=== PATIENT | female | born 1985 | race Caucasian/White ===

== ENCOUNTER 2023-12-20 17:04 | Emergency (ER) | payer OTHER, SELFPAY ==
[2023-12-20 17:06] VITALS: BP 159/103
--- NOTE | 2023-12-20 18:39 | ED.GENMED ---
History of Present Illness
General
Chief Complaint: Skin Problem
Source: patient
Exam Limitations: none
Time Seen by Provider: 12/20/23 18:08
Nursing documentation reviewed up to this point in time: agreed with
Travel History
Have you had any contact with someone who has COVID-19?: No
Do you have any symptoms of coronavirus? Fever > 100 degrees, chills, cough, shortness of breath, sore throat, loss of taste or smell, muscle aches, or headache?: No
History of Present Illness
History of Present Illness:
Patient is a 38-year-old female who noticed a round circular area of redness yesterday to her left lower leg. She is not sure if she got bitten by any insect. Today she noticed central clearing she was concerned about Lyme which the prompted her
to the ER. She has no complaints of fever chills body aches swollen joints or any other complaints.
Past History
Past History
ED Past Medical History: None
ED Past Surgical History: None
Review of Systems
Review of Systems
Allergies reviewed?: Yes
All Other Systems: ROS reviewed and negative except as documented in HPI and ROS
Constitutional: Reports no symptoms; Denies fever, fatigue or chills
Musculoskeletal: Reports no symptoms; Denies joint pain
Skin: Reports other (redness to left lower leg )
Hematologic/Lymphatic: Reports no symptoms
Psychiatric: Reports no symptoms
Phy Exam
General Physical Exam
General Presentation: no apparent distress
General age: appears stated age
General Skin: warm and dry
General Habitus: normal
General Mental: alert
General Hydration: appears well hydrated
Neurological Exam
Neurological Exam: alert and oriented x3
Musculoskeletal Exam
Musculoskeletal Exam: full ROM
Skin Exam
Skin Exam: normal color, warm/dry and other (area of round circular redness with small central clearing to left lower inner leg )
Psychiatric Exam
Psychiatric Exam: normal mood/affect
Course
Orders/Labs/Results
Orders:
Orders
12/20/23 18:38
Lyme Progressive Urgent
Doxycycline [Vibramycin] 100 mg PO NOW STA
Vital Signs
Initial and Last Documented VS:
Initial Vital Signs
Temp Pulse Resp BP Pulse Ox
98.2 F 84 18 159/103 99
12/20/23 17:06 12/20/23 17:06 12/20/23 17:06 12/20/23 17:06 12/20/23 17:06
Last Documented Vital Signs
Temp Pulse Resp BP Pulse Ox
98.2 F 84 18 159/103 99
12/20/23 17:06 12/20/23 17:06 12/20/23 17:06 12/20/23 17:06 12/20/23 17:06
MDM/Problems Addressed
Differential Diagnosis Includes:
Not limited to insect bite, cellulitis, Lyme disease
MDM/Problems Addressed:
Patient with round circular area of redness with central clearing to left lower leg no other complaints however with concern for Lyme will order Lyme testing and treat for Lyme with close outpatient follow-up family doctor.
*Critical Care Note
Total Time (30-74mins, 75-104mins- exclusive of procedures): Not Applicable
ED Attending Note
-
Portions of this chart may have been created with voice recognition software.� Occasional wrong word or��sound alike� substitutions may have occurred due to the inherent limitations of voice recognition software.
Discharge Plan
Departure
Patient Disposition: Home (Routine Discharge)
Date of Disposition: 12/20/23
Time of Disposition: 18:41
Patient with high blood pressure during this ER visit?: Yes
Condition: Fair
Covid-19: Not Applicable
Discharge Problem:
Rash
Instructions: Skin Rash (DC)
Prescriptions:
New
doxycycline hyclate 100 mg capsule
100 mg PO BID Qty: 42 0RF
Referrals:
Sebastian Wilson MD [Family Provider] -
Activity Restrictions/Additional Instructions:
As discussed a prescription for doxycycline was sent to your pharmacy take as directed. You are given a full 21-day course to treat for possible Lyme disease. Please however follow-up with your family doctor the next 1 days who may review lab
results and decide on final treatment. Return if any worsening of symptoms
Interventions
Interventions:
*Risk Screen - Suicide Last Done: 12/20/23 17:08
*General Assessment Last Done: 12/20/23 17:08
*Neglect/Abuse Screening Last Done: 12/20/23 17:08
Discharge Date and Time
Print Language: FRISIAN
[2023-12-20] MEDS: VIBRAMYCIN 100 MG PO (18:54)
[2023-12-20 19:10] VITALS: BP 142/88
[2023-12-21 14:33] LABS: Lyme Antibody Screen, EIA Negative (Negative)
== END 2023-12-20 19:13 | disposition home or self-care (01) ==
LOC: EMR 17:04
PROVIDERS: Nurse Practitioner; EMERGENCY PHYSICIAN Student in an Organized Health Care Education/Training Program; FAMILY PHYSICIAN Internal Medicine
DX: R21 Rash and other nonspecific skin eruption (principal); R03.0 Elevated blood-pressure reading, without diagnosis of hypertension
CPT/HCPCS: 99283; 86618

== ENCOUNTER 2024-08-09 11:53 | Emergency (ER) | payer SELFPAY ==
[2024-08-09 12:23] VITALS: BP 140/82
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
== END 2024-08-09 14:13 | disposition left against medical advice (07) ==
LOC: EMR 11:53
PROVIDERS: FAMILY PHYSICIAN Internal Medicine
DX: O26.891 Other specified pregnancy related conditions, first trimester (principal); Z3A.12 12 weeks gestation of pregnancy; S09.93XA Unspecified injury of face, initial encounter; Y04.2XXA Assault by strike against or bumped into by another person, initial encounter; Y93.89 Activity, other specified; Y92.89 Other specified places as the place of occurrence of the external cause; Y99.0 Civilian activity done for income or pay
CPT/HCPCS: 99284; 76801

== ENCOUNTER → 2024-09-07 14:45 | Outpatient (REF) | payer OTHER, SELFPAY | LOC: PNTC 14:45 | PROVIDERS: ATTENDING PHYSICIAN Student in an Organized Health Care Education/Training Program | DX: O30.039 Twin pregnancy, monochorionic/diamniotic, unspecified trimester (principal) | CPT/HCPCS: 76805; 76810 ==

== ENCOUNTER → 2024-09-20 15:59 | Outpatient (REF) | payer OTHER, SELFPAY | LOC: PNTC 15:59 | PROVIDERS: ATTENDING PHYSICIAN Student in an Organized Health Care Education/Training Program | DX: O30.039 Twin pregnancy, monochorionic/diamniotic, unspecified trimester (principal) | CPT/HCPCS: 76815; 76820; 76821 ==

== ENCOUNTER → 2024-10-06 14:30 | Outpatient (REF) | payer OTHER, SELFPAY | LOC: PNTC 14:30 | PROVIDERS: ATTENDING PHYSICIAN Student in an Organized Health Care Education/Training Program | DX: O30.039 Twin pregnancy, monochorionic/diamniotic, unspecified trimester (principal) | CPT/HCPCS: 76811; 76812; 76817; 76820; 76821 ==

== ENCOUNTER → 2024-10-17 16:30 | Outpatient (REF) | payer OTHER, SELFPAY | LOC: PNTC 16:30 | PROVIDERS: ATTENDING PHYSICIAN Obstetrics & Gynecology | DX: O30.032 Twin pregnancy, monochorionic/diamniotic, second trimester (principal); O09.522 Supervision of elderly multigravida, second trimester | CPT/HCPCS: 76815; 76820; 76821 ==

== ENCOUNTER → 2024-10-31 15:50 | Outpatient (REF) | payer OTHER, SELFPAY | LOC: PNTC 15:50 | PROVIDERS: ATTENDING PHYSICIAN Obstetrics & Gynecology | DX: O30.039 Twin pregnancy, monochorionic/diamniotic, unspecified trimester (principal) | CPT/HCPCS: 76816; 76820; 76821 ==

== ENCOUNTER → 2024-11-14 15:48 | Outpatient (REF) | payer OTHER, SELFPAY | LOC: PNTC 15:48 | PROVIDERS: ATTENDING PHYSICIAN Obstetrics & Gynecology | DX: O30.039 Twin pregnancy, monochorionic/diamniotic, unspecified trimester (principal) | CPT/HCPCS: 76815; 76820; 76821 ==

== ENCOUNTER → 2024-11-29 15:55 | Outpatient (REF) | payer OTHER, SELFPAY | LOC: PNTC 15:55 | PROVIDERS: ATTENDING PHYSICIAN Obstetrics & Gynecology | DX: O30.049 Twin pregnancy, dichorionic/diamniotic, unspecified trimester (principal) | CPT/HCPCS: 76816; 76820; 76821 ==

== ENCOUNTER → 2024-12-12 15:14 | Outpatient (REF) | payer OTHER, SELFPAY | LOC: PNTC 15:14 | PROVIDERS: ATTENDING PHYSICIAN Obstetrics & Gynecology | DX: O30.0 Twin pregnancy (principal) | CPT/HCPCS: 76815; 76820; 76821 ==

== ENCOUNTER → 2024-12-29 14:30 | Outpatient (REF) | payer OTHER, SELFPAY | LOC: PNTC 14:30 | PROVIDERS: ATTENDING PHYSICIAN Obstetrics & Gynecology | DX: O30.039 Twin pregnancy, monochorionic/diamniotic, unspecified trimester (principal) | CPT/HCPCS: 59025 ==

== ENCOUNTER → 2025-01-05 13:25 | Outpatient (REF) | payer OTHER, SELFPAY | LOC: PNTC 13:25 | PROVIDERS: ATTENDING PHYSICIAN Obstetrics & Gynecology | DX: O30.039 Twin pregnancy, monochorionic/diamniotic, unspecified trimester (principal) | CPT/HCPCS: 59025; 76815 ==

== ENCOUNTER 2025-01-11 18:20 | Inpatient (IN) | payer OTHER, SELFPAY ==
[2025-01-11 16:40] VITALS: BP 158/101
[2025-01-11 19:09] LABS: Hematocrit 30.7 % (37.0-47.0); Hemoglobin 10.6 g/dL (12.0-16.0); Mean Corp Hgb Conc. 34.5 g/dL (33.0-37.0); Mean Corpuscular Volume 84.6 fL (81.0-99.0); Platelet Count 258 10^3/uL (130-400); Red Cell Dist. Width 12.5 % (11.5-14.5)
[2025-01-11 19:20] LABS: ALT (SGPT) 13 U/L (0-35); AST (SGOT) 20 U/L (14-36); Albumin 3.6 g/dl (3.5-5.0); Alkaline Phosphatase 154 U/L (38-126); Blood Urea Nitrogen 6 mg/dl (7-17); Calcium 9.6 mg/dl (8.4-10.2); Carbon Dioxide 20 mmol/L (22-30); Chloride 111 mmol/L (98-107); Glucose 91 mg/dl (70-99); Potassium 3.1 mmol/L (3.5-5.1); Sodium 136 mmol/L (135-145); Total Protein 6.3 g/dl (6.3-8.2); eGFR > 60.00
[2025-01-11 19:24] VITALS: BMI 36.2
[2025-01-11] MEDS: LR 1000 IV (22:26)
[2025-01-11] MEDS: CELESTONE SOLUSPAN 2 MG IM (22:30)
[2025-01-11] MEDS: MAGNESIUM SULFATE 100 IV (22:39)
[2025-01-11] MEDS: TYLENOL 1000 MG PO (22:56)
[2025-01-11] MEDS: BICITRA 30 ML PO (22:57)
[2025-01-11] MEDS: MAGNESIUM SULFATE 40 GRAM 1000 IV (23:00)
[2025-01-11] MEDS: CLEOCIN 50 IV (23:53)
[2025-01-11] MEDS: GENTAMICIN 62 MG IV (23:53)
[2025-01-12] MEDS: PITOCIN 30 UNITS/NSS 500 ML IV (01:00)
[2025-01-12] MEDS: TORADOL 15 MG IV ×4 (02:10→20:21)
--- NOTE | 2025-01-12 02:33 | HPS.HSE ---
Family Physician
-
Family Physician: NOT KNOW UNKNOWN - PT DOES
Chief Complaint
-
elevated BP in the office
History of Present Illness
HPI: Patient is a 39yo @34.5 who presents from the office for PEC eval. BP in office 144/84. She has gained 8lbs in the last week. She denies headache, vision changes, chest pain, shortness of breath or RUQ pain.
complications
- [place]-di twin
- Marginal cord insertion twin B
- Twin A- mild pyelectasis- likely physiologic
- Advanced maternal age
- IECF both twins- normal variant w/ normal NIPT
PMHx: denies
Meds: bASA, PNV
Surghx: denies
All: amoxicillin, sulfa
Socialhx: denies tobacco, etoh or illicit drug use
Famhx: MGM- breast cancer
OBHx: EABx3
labs: Blood type B+, Ab neg, RPR non-reactive, HBsAg neg, HIV neg, GCCT neg, Rubella immune, Hep C neg, 1hr 102
Medical History
Past Medical History
Past Medical History: Reports None
Past Surgical History: Reports None
Social History
Tobacco: Non-smoker
Alcohol: None
Drug: None
Family History
Family History: Cancer
Allergies / Home Medications
Allergies reflects when Allergies were last updated in [facility].
Home Medications with original date entered in [facility]
Allergy/Medication List:
All: PCN, amoxicillin, sulfa
Meds: PNV, bASA
Review of Systems
-
A 12 point ROS was completed and negative except as noted: Yes
Physical Exam
Physical Exam
General: Well Developed and Well Nourished
HEENT: NormoCephalic
Respiratory: Non Labored Respirations
Cardiac: Regular Rhythm
Skin: Warm and Dry
Neuro: Awake
Psych: Calm
Laboratory Results
-
01/11/25 18:56
01/11/25 18:56
Laboratory Results
Total Bilirubin 0.8 mg/dl (0.2-1.3) 01/11/25 18:56
AST 20 U/L (14-36) 01/11/25 18:56
ALT 13 U/L (0-35) 01/11/25 18:56
Alkaline Phosphatase 154 U/L (38-126) H 01/11/25 18:56
Impression/Plan
-
IMPRESSION:
Patient is a 39yo @34.5 mono-di twin , preeclampsia with severe features
PLAN:
- Patient had sustained severe range BPs, meeting criteria for preeclampsia with severe features. She was started on magnesium for seizure prophylaxis and given betamethasone for lung maturity. Patient desired to proceed with primary
section. Risks, benefits and alternatives discussed including bleeding, infection, and damage to surrounding structures and need for future operations. NICU and anesthesia notified
- Gentamicin and clindamycin ordered for antibiotic prophylaxis
--- NOTE | 2025-01-12 02:41 | OR.RPT ---
Operative Report
Operative Report
Procedure date: 01/11/2025
Preop diagnosis: IUP @34.6, mono-di twin , preeclampsia w/ severe features, advanced maternal age
Postop diagnosis: same
Procedure: Primary low transverse section
Surgeon: Chad
Anesthesia: Spinal, [place]
QBL: 355mL
Findings: Viable male infants born from cephalic presentation at 0012 and 0013. Baby A with loose nuchal x1, reduced with Apgars 8/8. Baby B Apgars 8/9. TXA given after delivery of babies for increased bleeding from hysterotomy. Normal appearing
bilateral fallopian tubes and ovaries. Small paratubal cyst on left
Complications: none
Indication: Patient is a 39yo @34.5 weeks who presented to Labor and Delivery from the office for preeclampsia evaluation. During monitoring on Labor and Delivery, patient had sustained severe range blood pressures. She was started on magnesium
for seizure prophylaxis and given betamethasone for lung maturity. Delivery recommended since she is greater than 34 weeks. Patient desired primary section and declined induction of labor. Risks, benefits and alternatives reviewed and
consents were signed.
Procedure: Patient was taken to the operating room where spinal anesthesia was administered and found to be adequate. 900mg of Clindamycin and 5mg/kg of Gentamicin were given for antibiotic prophylaxis. The abdomen was prepped with ChloraPrep. The
patient was draped in the normal sterile fashion. She was placed in the dorsal supine position with a left lateral tilt. A Pfannenstiel incision was made with a 10 blade and carried down to the fascia with a scalpel. Hemostasis achieved with Bovie.
The fascia was incised and dissected laterally with Huddleston scissors. The superior aspect of the fascia was grasped with Katina clamps. The underlying rectus fascia was sharply dissected with Huddleston scissors. In a similar fashion the inferior aspect of
the fascia was elevated with Katina clamps and the rectus muscle was dissected off with Huddleston scissors. The rectus muscles were down the midline to the level of the pubic symphysis with manual dissection. The peritoneum was bluntly entered
and extended using manual traction.
Hodges retractor and bladder blade were placed revealing good visualization of the bladder. The vesicouterine peritoneum was identified. A thin lower uterine segment was noted. The lower uterine segment was incised with a scalpel. Clear amniotic
fluid noted at entry. The uterine incision was extended bluntly with lateral and upward traction.
Baby A was in cephalic presentation. The head was elevated out of the pelvis with special attention paid to avoid using the uterine incision as a fulcrum. Gentle fundal pressure was applied once the head was brought to the incision and delivered.
Loose nuchal x1 was reduced. The rest of the delivered without difficulty. Delayed cord clamping was performed. The was handed off to the rf technician. Baby B was in cephalic presentation. Artificial rupture of membranes was performed
with an Allis clamp for clear fluid. The head was delivered through the hysterotomy with fundal pressure and the rest of the delivered without difficulty. Delayed cord clamping was performed and infant handed off to rf technician. IV oxytocin
was started to facilitate uterine contractions. The placenta was manually extracted. The uterus was exteriorized. Allis clamps were placed at the apices of the hysterotomy. The inside of the uterus was wiped with a lap sponge to assure complete
removal of placental membranes. Fundal massage was performed and uterus was boggy. TXA was given. Fundal massage was performed again and uterus was firm. The uterine incision was closed with 0 Vicryl in a running locked fashion. A horizontal
imbricating stitch was done on the hysterotomy with 0 Vicryl. There was oozing along the hysterotomy and figure of eights were placed with 0 Vicryl to achieve hemostasis. The hysterotomy was inspected and noted to be hemostatic. The uterus was
placed back in the abdomen. Blood clots and fluid were wiped out of the abdomen and pelvis with moist laparotomy sponges. The hysterotomy was examined and was hemostatic.
The rectus muscles were examined and were hemostatic. The fascial layer was closed in a running continuous fashion using 0 Vicryl. The subcutaneous tissue was copiously irrigated and any small bleeding vessels were cauterized with Bovie cautery. The
subcutaneous tissue was reapproximated in a running continuous fashion with 2-0 Plain. The skin was closed with 4-0 Vicryl in a subcuticular fashion and covered with skin glue. The patient tolerated the procedure well. All sponge and instrument
counts were correct times two. The patient was taken to the recovery room in stable condition. Ayon catheter was draining clear urine at the end of the procedure.
--- NOTE | 2025-01-12 07:47 | W.PN.ANS.POP ---
Anesthesia Post Operative
- Anesthesia Post Op Note
Vital Signs Stable-See Nursing Note: Yes
Airway Patent: Yes
Adequate Pain Control: Yes
Change in Mental Status: No
Current Postoperative Nausea & Vomiting: No
Anesthesia Complications: No
General Anesthetic Recall: No
Unplanned Admission: No
Post Op Hydration Adequate: Yes
[2025-01-12] MEDS: PRENATAL PLUS 1 TABLET PO (08:15)
[2025-01-12] MEDS: COLACE 100 MG PO ×2 (08:15→20:21)
[2025-01-12] MEDS: LR 1000 IV (14:09)
[2025-01-12] MEDS: MAGNESIUM SULFATE 40 GRAM 1000 IV (18:50)
[2025-01-13] MEDS: LR IV (03:41)
[2025-01-13 04:28] LABS: Hematocrit 26.7 % (37.0-47.0); Hemoglobin 9.1 g/dL (12.0-16.0); Mean Corp Hgb Conc. 34.1 g/dL (33.0-37.0); Mean Corpuscular Volume 85.6 fL (81.0-99.0); Platelet Count 242 10^3/uL (130-400); Red Cell Dist. Width 12.4 % (11.5-14.5)
[2025-01-13] MEDS: PRENATAL PLUS 1 TABLET PO (08:22)
[2025-01-13] MEDS: MOTRIN 600 MG PO ×3 (08:22→21:10)
[2025-01-13] MEDS: FEOSOL 325 MG PO (08:22)
[2025-01-13] MEDS: COLACE 100 MG PO ×2 (08:22→20:18)
[2025-01-13] MEDS: TYLENOL 650 MG PO ×2 (10:16→17:58)
[2025-01-13] MEDS: PROCARDIA XL (EXTENDED RELEASE) 30 MG PO (12:13)
[2025-01-14] MEDS: TYLENOL 650 MG PO ×3 (01:27→15:15)
[2025-01-14] MEDS: MOTRIN 600 MG PO ×4 (04:37→23:33)
[2025-01-14] MEDS: FEOSOL 325 MG PO (08:13)
[2025-01-14] MEDS: COLACE 100 MG PO ×2 (08:13→21:00)
[2025-01-14] MEDS: PRENATAL PLUS 1 TABLET PO (08:13)
[2025-01-14] MEDS: PROCARDIA XL (EXTENDED RELEASE) 30 MG PO (08:14)
[2025-01-15] MEDS: TYLENOL 650 MG PO ×2 (03:29→14:51)
[2025-01-15] MEDS: PROCARDIA XL (EXTENDED RELEASE) 30 MG PO ×2 (08:00→08:37)
[2025-01-15] MEDS: PRENATAL PLUS 1 TABLET PO (08:00)
[2025-01-15] MEDS: FEOSOL 325 MG PO (08:00)
[2025-01-15] MEDS: COLACE 100 MG PO (08:00)
[2025-01-15] MEDS: MOTRIN 600 MG PO ×2 (08:06→14:51)
--- NOTE | 2025-01-15 16:41 | W.DS.TRANS ---
DC Summary - Biosecurity Officer
-
Discharge Instructions:
Discharge Diagnosis/Procedures preeclampsia with severe features, twin
delivered via section
Diet No restrictions
Activity No strenuous activity
Driving Restrictions No driving for 2 weeks
Bathing Restrictions OK to Shower
Instructions:
Stand-Alone Forms: LDRP Delivery
LDRP Hypertensive Disorders
Changes to Home Medications: No
Discharge Medications:
DC Medications w/original date entered in [facility]
Vitamin 1 tab PO DAILY daily 01/11/25
acetaminophen 325 mg tablet 650 mg (2 x 325 mg) PO Q4HPRN PRN mild pain #0 tabs 01/15/25
docusate sodium 100 mg capsule 100 mg PO BID #0 caps 01/15/25
ferrous sulfate 325 mg (65 mg iron) tablet (FeroSul) 325 mg PO DAILY #0 tabs 01/15/25
ibuprofen 600 mg tablet 600 mg PO Q6HPRN PRN cramps #45 tabs 01/15/25
nifedipine 60 mg tablet,extended release 60 mg PO DAILY #60 tabs 01/15/25
vitamins with calcium no.72-iron 27 mg-folic acid 1 mg tablet (WesTab Plus) 1 tab PO DAILY #0 tabs 01/15/25
Home Medication Changes
Pending Results: No
[2025-01-17 17:15] LABS: Syphilis/T. pallidum Ab Reflex Negative (Negative)
== END 2025-01-15 16:45 | disposition home or self-care (01) | DRG 788 ==
LOC: LDRP 18:20
PROVIDERS: ADMITTING PHYSICIAN Student in an Organized Health Care Education/Training Program
PROC: 10D00Z1 Extraction of Products of Conception, Low, Open Approach (ICD-10-PCS; 2025-01-11)
DX: O14.14 Severe pre-eclampsia complicating childbirth (principal); Z3A.34 34 weeks gestation of pregnancy; O30.033 Twin pregnancy, monochorionic/diamniotic, third trimester; O69.81X1 Labor and delivery complicated by cord around neck, without compression, fetus 1; O43.193 Other malformation of placenta, third trimester; Z37.2 Twins, both liveborn
CPT/HCPCS: 80053; 82570; 84156; 85027; 86780; 86850; 86900; 86901; 88307

== ENCOUNTER 2025-01-21 10:02 | Observation (INO) | payer OTHER, SELFPAY ==
[2025-01-21 10:35] VITALS: BP 139/81; BMI 30.1
[2025-01-21 10:52] LABS: Hematocrit 38.5 % (37.0-47.0); Hemoglobin 12.9 g/dL (12.0-16.0); Mean Corp Hgb Conc. 33.5 g/dL (33.0-37.0); Mean Corpuscular Volume 85.9 fL (81.0-99.0); Nucleated Red Blood Cells % 0 %; Platelet Count 414 10^3/uL (130-400); Red Cell Dist. Width 13.3 % (11.5-14.5)
[2025-01-21 11:01] LABS: Urine Character Slightly Cloudy (Clear)
[2025-01-21 11:11] LABS: ALT (SGPT) 17 U/L (0-35); AST (SGOT) 19 U/L (14-36); Albumin 4.3 g/dl (3.5-5.0); Alkaline Phosphatase 113 U/L (38-126); Blood Urea Nitrogen 21 mg/dl (7-17); Calcium 10.7 mg/dl (8.4-10.2); Carbon Dioxide 23 mmol/L (22-30); Chloride 107 mmol/L (98-107); Estimated Creatinine Clearance 112 ml/min; Glucose 106 mg/dl (70-99); Potassium 4.4 mmol/L (3.5-5.1); Sodium 137 mmol/L (135-145); Total Protein 7.4 g/dl (6.3-8.2); Uric Acid 4.7 mg/dl (2.5-6.2); eGFR > 60.00
== END 2025-01-21 16:17 | disposition home or self-care (01) ==
LOC: LDRP 10:02
PROVIDERS: ADMITTING PHYSICIAN Obstetrics & Gynecology
DX: O14.15 Severe pre-eclampsia, complicating the puerperium (principal)
CPT/HCPCS: 80053; 81003; 81015; 82570; 84156; 84550; 85025; G0378